=== PATIENT | male | born 1960 | race Caucasian/White ===

== ENCOUNTER → 2021-11-12 09:28 | Outpatient (CLI) | payer OTHER, SELFPAY ==
[2021-11-12 12:49] LABS: COVID19 -Nasal RAPID Negative (Negative)
== END ==
PROVIDERS: Visit Provider Family Medicine Sleep Medicine
DX: Z20.822 Contact with and (suspected) exposure to COVID-19 (principal)
CPT/HCPCS: 87635; C9803

== ENCOUNTER 2021-11-15 09:48 | Day surgery (SDC) | payer OTHER, SELFPAY ==
[2021-10-04 15:39] LABS: COVID19 -Nasal RAPID Negative (Negative)
--- NOTE | 2021-10-05 19:11 | SUR.PREOP ---
Spoke to patient. Notified that surgery for tommorrow has been cancelled and to reach out to 's office to reschedule.
[2021-10-06 14:52] VITALS: BMI 32.8
[2021-11-15] VITALS (14 sets, daily range): BP systolic 107–140; BP diastolic 69–99; PULSE 66–105; RESP 12–19; TEMP 35.9–36.6; O2SAT 93–99; BMI 32.8
--- NOTE | 2021-11-15 06:00 | DI.RAD.S_ITS ---
PROCEDURE: XR SHOULDER RT 1V INDICATIONS: prosthesis placement TECHNIQUE: AP view of the right shoulder were acquired. COMPARISON: [facility], CR, XR SHOULDER 2+ VIEWS RIGHT, 02/24/2021, 11:38. FINDINGS: Bones: A right shoulder arthroplasty is seen in situ. The meaning visualized osseous structures appear maintained. Osteophytosis about the AC joint. Visualized ribs appear intact. Soft tissues: Subcutaneous emphysema, compatible with recent intervention. IMPRESSION: Expected postsurgical change. Dictated by: Gianluca Nielsen M.D. on 11/15/2021 at 15:11 Approved by: Gianluca Nielsen M.D. on 11/15/2021 at 15:13
[2021-11-15] MEDS: PREGABALIN 75 MG CAPSULE PO (10:09)
[2021-11-15] MEDS: CELECOXIB 200 MG CAPSULE PO (10:09)
[2021-11-15] MEDS: ACETAMINOPHEN 325 MG TABLET 975 MG PO (10:09)
[2021-11-15] MEDS: LACTATED RINGERS 1,000 ML 84 ML IV ×2 (10:49→13:57)
--- NOTE | 2021-11-15 11:52 | PM.HP.1 ---
History of Present Illness History of Present Illness Date Patient Seen: 11/15/21 Time Patient Seen: 11:52 Chief complaint: OPB Narrative: The patient is a 61-year-old gentleman who has right shoulder pain that has worsened despite non operative management. He has planned a right total shoulder replacement, this has been delayed due to the governor's mandate on . His history and physical is officially out of date. This is an interim history and physical. The patient reports no changes in his shoulder or general medical health since the prior history and physical in early September. Patient History Medical History Anxiety Dupuytren's contracture of both hands Hx of heartburn Lumbar disc herniation Surgical History History of vasectomy Hx of tonsillectomy S/P epidural steroid injection Family & Social History Social History: household members spouse,children Prior Living Arrangements Mobile home Safety & Behavioral: Feels Safe in Current Yes Environment Been Physically Hurt or No Threatened By a Person Suicidal Ideation Description None Suicide Plan Description No Plan Tobacco & Substance use: Smoking Status Never smoker alcohol intake current alcohol intake frequency 0-2 drinks per day Substance Use Type marijuana Meds Home Medications and Allergies Home Medications Medication Instructions Recorded Confirmed Type ibuprofen 200 mg capsule 400 - 800 mg PO DAILY PRN #0 03/21/17 11/15/21 History Allergies Allergy/AdvReac Type Severity Reaction Status Date / Time hydrocodone AdvReac Severe Nausea, Verified 11/15/21 09:58 vomiting oxycodone AdvReac Severe Hyperactive Verified 11/15/21 09:58 response Review of Systems Review of Systems Narrative: The patient reports he is in his normal state of health. Exam Vital Signs (past 8 hours): - 11/15/21 10:16 Temperature 97.3 F L Pulse Rate 73 Respiratory Rate 18 Blood Pressure 140/99 H Pulse Oximetry 99 Oxygen Delivery Method Room Air Narrative Exam Narrative: Chest is clear to auscultation. Cardiac exam regular rate and rhythm. Abdomen is benign. Right shoulder examination is as previously outlined in his prior history and physical. Assessment & Plan Assessment & Plan narrative: Right shoulder osteoarthritis that has not responded to non operative measures. The patient has agreed to right total shoulder replacement after discussion the risks benefits and alternatives. Risks discussed included but were not limited to: Failure to improve, stiffness, infection, nerve damage, deep venous thrombosis, pulmonary embolism, stroke, myocardial infarction, permanent paralysis, aspiration pneumonia and . COVID-19 COVID-19 status: Negative Result date/Date tested (Pos, Neg/Pending): 11/12/21 Time Spent With Patient Critical Care time: I spent a total of [] minutes of critical care time on this patient's care today; this time is exclusive of procedural time.
--- NOTE | 2021-11-15 12:12 | SUR.PREOP ---
Block start time [1212] . Monitoring initiated and maintained throughout procedure. Oxygen and medications given per anesthesiologist instructions. Patient remained stable throughout procedure, no adverse reactions noted. Block end time [1222].
[2021-11-15] MEDS: CEFAZOLIN 2 GM/20 ML SYRINGE IV (12:30)
[2021-11-15] MEDS: TRANEXAMIC ACID 1,000 MG VIAL 1000 MG INJ ×2 (12:35→13:57)
[2021-11-15] MEDS: THROMBIN (RECOMBINANT) 5,000 UNIT VIAL 5000 UNIT TOP (13:01)
[2021-11-15] MEDS: BUPIVACAINE 0.5% W/ EPI (PF) 30 ML VIAL INJ (13:03)
--- NOTE | 2021-11-15 13:09 | PM.PROC.1 ---
Procedures Date/Time Date of procedure: 11/15/21 Time of procedure: 12:05 General Procedure description: Ultrasound guided interscalene brachial plexus nerve block for post op pain control after RIGHT TOTAL SHOULDER ARTHROPLASTY by Dr. Fine. Risk and benefits of procedure discussed with patient. ASA monitoring applied to patient. O2 given via nasal cannula. 2 mg Versed and 50 mcg fentanyl given for procedural sedation. Skin site was prepped with chlorhexidine and allowed to fully dry. Sterile gloves, mask, hat and probe cover were used to maintain sterility. 2% lidocaine and 30ga needle was used to make a small skin wheal at needle insertion site. Under ultrasound guidance, a 21ga 50mm Pajunk needle was directed into the interscalene groove (middle/anterior scalenes) near the brachial plexus. Patient reported no parasthesias. After negative aspiration, 20 mL 0.5% ropivacaine and 10mg dexamethasone were injected around brachial plexus. Patient tolerated procedure well.
--- NOTE | 2021-11-15 13:31 | SUR.OPER ---
Beach chair with Schlein shoulder positioner. Lower body on padded OR bed. Head in foam padded head cradle, secured with straps. Non-operative arm secured <90 degrees abduction. Pillow under knees. Safety belt at thigh. Cloth tape over blanket over lower legs.
--- NOTE | 2021-11-15 14:33 | PM.OP.1 ---
Operative Date/Time/Diagnoses Date of procedure: 11/15/21 Time of procedure: 14:15 Pre-op diagnosis: Right shoulder osteoarthritis Post-op diagnosis: same Procedure & Clinicians Procedure: Right total shoulder replacement Same procedure as scheduled: Yes Indications: The patient has had progressively worsening right shoulder pain with radiographic changes consistent with arthritis. Non-operative management has failed and the patient has requested total shoulder replacement. The risks, benefits and alternatives to surgery were discussed with the patient prior to proceeding. Risks discussed included, but were not limited to, failure to relieve pain, stiffness, infection, nerve damage, deep venous thrombosis, pulmonary embolism, stroke, coma, heart attack, permanent paralysis and , as well as the potential need for eventual revision of the prosthetic. Surgeon: Kyle Fine Alternative Dispute Resolution Mediator: Simone Madrid Click Yes if Unassisted: No Anesthesia Type: General, Peripheral nerve block and Local Operative Notes Findings: Severe osteoarthritis of the right glenohumeral joint with a large inferior osteophyte on the humeral head and a mild biconcave glenoid deformity. Closure Type: primary Specimen(s): none sent Prosthetic devices, grafts, tissues, transplants, or devices: Implants used in this procedure were manufactured by the [employer] and included a canal sparing size 2 stem with a 50 mm x 20 mm neutral humeral head. There was a 50 mm all polyethylene pegged E +glenoid. In addition an Ar[employer]rex SpeedBridge system was used for closure of the subscapularis. Applied: implant(s) Estimated Blood Loss (mL): 200 Blood products transfused: none Procedure in detail: The patient was seen in the pre-operative area, where the patient identified the right shoulder as the operative site and this was marked with my initials. The patient received pre-operative antibiotics, underwent an interscalene block, and was taken to the operating room and placed on the operative table in the supine position. After satisfactory anesthesia, a full ?time out? was performed. The patient was repositioned in the ?beach chair? position using a dedicated positioner. All pressure points were well padded, and the knees were slightly bent to prevent tension on the sciatic nerves. The right arm was prepared from the fingers to the base of the neck with ChloroPrep in the usual fashion and draped through sterile drapes. An approximately 15 cm incision was created, starting at the clavicle above the coracoid process and extended towards the deltoid insertion. The deltopectoral interval was used to access the shoulder. The cephalic vein was taken medially. A self retaining retractor was placed. The upper centimeter of the pectoralis major tendon was released. The ?three sisters? were identified and cauterized. The axillary nerve was palpated and protected throughout the case. The biceps was released from its groove and tenodesed over the top of the pectoralis major tendon. The subscapularis was released from the lesser tuberosity with a subscapularis peel and tagged for later repair. The shoulder was dislocated and a cutting guide was used for the proximal humeral osteotomy in 30 degrees of retroversion. The proximal humerus was sized and a guide pin placed in the center of the humeral metaphysis. The step Reamer was used followed by the drill for the central portion of the prosthetic body. The size 2 broach was then placed. Proximal humeral protector was then placed. We then removed the self-retaining retractor and placed retractors to access the glenoid. The subscapularis was released with a ?360 degree release? with care being taken to protect the axillary nerve with the inferior portion of this procedure. The remnant of labrum and biceps stump were removed. The appropriate size reamer was chosen with the glenoid sizer, and the guide pin placed. The glenoid was appropriately reamed. The guide for the peripheral holes was used and the center hole enlarged. The trial glenoid was placed with good stability. We then cemented the final implant into place after irrigating the peg holes and drying them with thrombin-soaked Gelfoam. We returned our attention to the humerus, a trial humeral head was applied and a trial reduction performed. Stability was checked with 50% posterior translation with spontaneous reduction, 45? external rotation at the side with the subscapularis held in the repaired position and 70? internal rotation in the ?scarecrow position?. This was felt to be satisfactory and the appropriate implants were opened. The humeral prosthetic was impacted into the humerus. The humeral head was applied when the stem was still slightly proud and impacted to both seat the head and fully seat the stem. The joint was relocated one final time. The joint was irrigated and the subscapularis repaired to the lesser tuberosity using a double row repair with the [employer] Speed Bridge system. The top of the subscapularis was closed to the leading edge of the supraspinatus with a figure of 8 #2 Ethibond to close the rotator interval. A deep drain was placed and brought out supero-laterally. The deltopectoral interval was closed with interrupted 0 Vicryl. The subcutaneous layer was closed with 3-0 Vicryl, and the skin with a running 3-0 V-Lock suture and Dermabond. An Aquacel Ag dressing was applied, the patient?s arm was placed in a sling, and the patient was taken to recovery having tolerated the procedure well. Complications: none Post-operative Condition: stable Disposition: PACU Plan for aftercare: The patient will be maintained on a standard total shoulder replacement protocol with passive range of motion limited to 90 degrees forward flexion, 0 degrees external rotation at the side, 0 degrees abduction and internal rotation to the body. The patient will receive aspirin and sequential compression devices for DVT prophylaxis. The patient will be discharged home when safe for the home environment, likely tomorrow.
[2021-11-15] MEDS: TRAMADOL 50 MG TABLET 100 MG PO (16:38)
[2021-11-15] MEDS: ACETAMINOPHEN 325 MG TABLET 650 MG PO (16:38)
[2021-11-15] MEDS: LACTATED RINGERS 1,000 ML 100 ML IV (16:39)
[2021-11-15] MEDS: IBUPROFEN 400 MG TABLET PO (17:34)
[2021-11-16] MEDS: TRAMADOL 50 MG TABLET PO (05:12)
[2021-11-16 05:53] LABS: Hematocrit 42.3 % (41-53); Hemoglobin 13.9 g/dL (13.5-17.5)
--- NOTE | 2021-11-16 07:40 | PM.DS.1 ---
History of Present Illness History of Present Illness Date Patient Seen: 11/16/21 Time Patient Seen: 07:40 Chief complaint: OPB Narrative: The patient is a 61-year-old gentleman who has right shoulder pain that has worsened despite non operative management. He has planned a right total shoulder replacement, this has been delayed due to the governor's mandate on . His history and physical is officially out of date. This is an interim history and physical. The patient reports no changes in his shoulder or general medical health since the prior history and physical in early September. Discharge Providers Provider Date of admission: November 15, 2021 Discharge Date: 11/16/21 Consults: 11/15/21 15:15 Consult to Discharge Planning Routine Comment: Consult to Physical Therapy Evaluate & Treat Comment: Physician Instructions: Pendulums, PROM 90 FF, 0 ER, 0 Ab, IR to body Discharge provider: Kyle Fine MD Summary Hospital Course Discharge Diagnosis: 1. Right shoulder osteoarthritis Hospital Course: The patient was admitted to the hospital and taken directly to the operating room on November 15, 2021 where he underwent a right total shoulder replacement without complications. He had borderline pain control overnight but had refused to take his Tylenol and ibuprofen, only using tramadol. He was otherwise medically stable and neurologically intact on examination. Status at Discharge Cognitive/behavioral status at discharge: at baseline, oriented Functional status at discharge: independent ambulation Overall status at discharge: patient is progressing back to baseline Time Spent with Patient Time spent: Less than 30 minutes Exam Vital Signs (past 8 hours): Oxygen Delivery Method Nasal Cannula Oxygen Flow Rate 0 Narrative Exam Narrative: Right upper extremity wound is dressed with no drainage on the bandage. Light touch is intact in the radial, ulnar, median, muscular cutaneous and axillary nerve distributions. He can extend his thumb, abduct his thumb, abduct his fingers and can fire his biceps and deltoid. Objective Labs Result Diagrams: 11/16/21 04:54 Labs: Laboratory Results - last 24 hr 11/16/21 04:54 Hgb 13.9 Hct 42.3 PFSH Medical History Anxiety Dupuytren's contracture of both hands Hx of heartburn Lumbar disc herniation Surgical History History of vasectomy Hx of tonsillectomy S/P epidural steroid injection Social History household members: spouse and children Smoking Status: Never smoker alcohol intake: current Discharge Assessment & Plan Assessment and Plan Assessment: Stable and neurologically intact 1 day postoperative from right total shoulder replacement. His pain control has been marginal but he has not been using the multi modal pain control plan as directed. He is otherwise medically stable. Plan of Treatment: We talked about the appropriate use of multiple medications for pain relief after major joint surgery. He will be discharged today. He will follow up in my office in 10-14 days. He has been given a prescription for tramadol and Vistaril. He has been instructed in the use of Tylenol and ibuprofen for additional pain control and the use of low-dose aspirin for DVT prophylaxis. Discharge Plan Discharge Plan Patient Disposition: Home Discharge orders & Medications Discharge Orders: Discharge (Order); Ordered 11/16/21 Ordered By: Kyle Fine Prescriptions: New acetaminophen 325 mg Tablet 650 mg PO TID 30 Days Qty: 180 0RF aspirin 81 mg Tablet,Delayed Release (Dr/Ec) 81 mg PO BID 42 Days Qty: 84 0RF hydroxyzine pamoate 25 mg Capsule 25 mg PO Q6HR PRN (Reason: Nausea) Qty: 30 0RF ibuprofen 400 mg Tablet 400 mg PO Q4HR 30 Days 0RF tramadol 50 mg Tablet 50 mg PO QID PRN (Reason: Pain, Moderate (4-6)) Qty: 40 0RF Discontinued ibuprofen 200 MG capsule 400 - 800 mg PO DAILY PRN (Reason: Pain) Qty: 0 0RF Follow up/Referrals: Kyle Fine MD [Physician] - 2 Weeks Diet/Activity/Treatments Diet: Diet as Tolerated and Regular Activity: You may use your right hand in front of your body below shoulder level to lift 1-2 lb. Cold/Heat Therapy: You may apply ice to the right shoulder for 15 minutes every hour as needed for pain control. Skin/Wound/Dressing Care Report to your healthcare provider any signs of infection, such as:: chills, fever, night sweats, increased pain, unusual drainage and unusual redness Dressing: Leave the dressing intact until your postoperative follow-up. You may shower with the dressing in place. If the central strip of the dressing becomes saturated with either water or blood, please call the office to have it evaluated. Visit Report/Discharge Packet Instructions: DI for Shoulder Replacement Stand Alone Forms: Surgery Discharge Discharge Data Attending Provider: Kyle Fine VTE Deep Vein Thrombosis/Pulmonary Embolism Present on Admission: No
[2021-11-16 08:20] VITALS: BP 108/74; PULSE 72; RESP 18; TEMP 36.7; O2SAT 95
[2021-11-16] MEDS: IBUPROFEN 400 MG TABLET PO (09:23)
[2021-11-16] MEDS: ASPIRIN EC 81 MG TABLET PO (09:23)
--- NOTE | 2021-11-16 09:45 | PT.IIE ---
Current Diagnoses Primary osteoarthritis, right shoulder (11/15/21) Surgery Performed Operation Date: 11/15/21 12:15 Actual Procedures p Total Shoulder Arthroplasty(Right) - Kyle Fine MD Medical History (Last Reviewed 11/15/21 @ 11:53 by Kyle Fine MD) Anxiety Dupuytren's contracture of both hands Hx of heartburn Lumbar disc herniation Physical Therapy Inpatient Evaluation/Re-Eval M1 PT/OT-IP Prior Functional Status Start: 11/16/21 12:52 Freq: NEEDED Status: Active Protocol: Document 11/16/21 09:45 AB (Rec: 11/16/21 13:03 AB [id number]) Medical Review Prior Functional Status Medical History Reviewed Yes Communication able to make needs known Mobility and Gait pt stated that he is independent with all mobilities and ambulation without AD Social History Household Members spouse,children Living Arrangements Mobile home Number of Floors (Floors) One Floor Number of Stairs To Enter/Railing? 3 steps B rails to enter Home Environment High Toilet,Walk in Shower Employment Status Retired M2 PT-IP Current Condition Start: 11/16/21 12:52 Freq: NEEDED Status: Active Protocol: Document 11/16/21 09:45 AB (Rec: 11/16/21 13:03 AB [email or web address]) Physical Therapy Current Condition Current Condition Evaluation Date 11/16/21 Treatment Diagnosis s/p R TSA; difficulty in walking Onset Date 11/15/21 M3 PT-IP Subjective Start: 11/16/21 12:52 Freq: NEEDED Status: Active Protocol: Document 11/16/21 09:45 AB (Rec: 11/16/21 13:03 AB [email or web address]) Subjective Physical Therapy Visit Type Type Initial Evaluation Visit Start Time 09:45 Visit Stop Time 10:30 Total Visit Minutes 45 Number of REFRIGERATOR ASSEMBLER Visits 0 Physical Therapy Visit Comments Patient Comments pt is agreeable to do PT Therapy Pain Assessment Pain When Pain Assessed At Rest Pain Present Pain Present Pain Reported Location Right Shoulder Intensity 4 Scale Used Numeric (0 - 10) Pain Management Techniques Distraction,Modification of Treatment,Re-positioning, Timing of Activity with Medications M4 PT-IP Mobility and Gait Start: 11/16/21 12:52 Freq: NEEDED Status: Active Protocol: Document 11/16/21 09:45 AB (Rec: 11/16/21 13:03 AB [email or web address]) PT-Bed Mobility Assessment Supine to Sit Supine to Sit Standby Assistance Sit to Supine Sit to Supine Standby Assistance Scooting Scooting to Edge of Bed Standby Assistance PT-Transfer Assessment Sit to and From Stand Sit to and from Stand Standby Assistance Equipment Transfer Assistive Device None,Gait Belt Orthotic/Prosthetic Devices or Brace: Yes Comments Mobility Comments pt agreed to do PT. spouse in room. educated pt and spouse regarding TSA precautions, elbow/wrist/hand exercises and pendulum exercises. pt completed supine to sit SBA. sat on EOB SBA. assisted with sling management. completed elbow/wrist/hand exercises. attempted pendulum but only was able to assume position and dangle RUE to side but due to increase muscle guarding and unable to relax RUE, pt was not able to complete pendulum exercise. educated on UB dressing techniques. educated spouse on how to manage sling. spouse was able to put sling on pt. pt completed sit to stand from EOB SBA and ambulated ~ 250 ft without AD SBA. completed up/down steps using L rail SBA . ambulated back to his room. sat on EOB. Pt and spouse without any other concerns and stated that he is ready to go home. informed nurse. Gait Assessment Gait Gait Assistance Required: Standby Assistance Distance (Feet) 250 Able to Maintain Weight Bearing Status Yes During Gait Assistive Devices Assistive Device None,Gait Belt Orthotic/Prosthetic Devices or Brace: Yes Factors Limiting Gait Function Factors Limiting Gait Function Decreased Strength,Limited Range of Motion,Pain Stair Climbing Assessment Evaluation Level of Assist On Stairs Standby Assistance Devices Stair Climbing Assistive Devices Left Railing Technique/Endurance Stair Climbing Direction Ascend and Descend Stair Climbing Technique Step Over Step Number of Steps Climbed 3 Query Text: Stair Climbing Set # Repetitions (reps) 1 PT-Balance Assessment Sitting Balance and Reactions Static Sitting Balance Ability Normal Dynamic Sitting Balance Ability Normal Standing Balance and Reactions Static Standing Balance Ability Good Dynamic Standing Balance Ability Good Device Used without AD M5 PT-IP Objective Assessments Start: 11/16/21 12:52 Freq: NEEDED Status: Active Protocol: Document 11/16/21 09:45 AB (Rec: 11/16/21 13:03 [email or web address]) Orientation Orientation/Cognition Level of Alertness Alert Orientation Name,Age,Birthday,Month,Date, Year,Day of Week,Place, Situation Language Function Ability No Deficits Noted Safety Awareness Understands Safety Issues Memory Description No Deficits Noted Gross Range of Motion Lower Extremity ROM Assessment Within Functional Limits Strength Lower Extremity Strength Assessment Within Functional Limits Coordination Assessment Gross Coordination Gross Coordination WNL Sensation Assessment Sensation Gross Sensation WNL Muscle Tone Muscle Tone WNL Yes M6 PT-IP Treatment Start: 11/16/21 12:52 Freq: NEEDED Status: Active Protocol: Document 11/16/21 09:45 AB (Rec: 11/16/21 13:03 AB [email or web address]) Physical Therapy Treatment Exercises Exercises Shoulder Pendulums,Shoulder Flexion,Elbow Flexion/ Extension,Wrist ROM,Hand ROM Education Education Provided Precautions,Weight Bearing Status,Post-Op Packet,Safety Brace Education [place],Caregiver M7 PT-IP Assessment and Plan Start: 11/16/21 12:52 Freq: NEEDED Status: Active Protocol: Document 11/16/21 09:45 AB (Rec: 11/16/21 13:03 AB [email or web address]) PT Summary Assessment and Plan Potential Rehabilitation Potential Good Status of Condition at Evaluation Stable Summary Impairments Pain,ROM,Strength,Balance, Coordination,Sensation,Tone, Cognition,Bed Mobility, Transfers,Gait,Activity Tolerance Assessment Summary pt requiring SBA with mobility . caregiver training conducted for sling management and assisting pt with UB dressing. pt may go home when medically stable. Goals Bed Mobility Goal Independent Transfer Goal Independent Gait Goal Independent Gait Distance 300 Other Goals up/down 3 steps L rail mod I Days to Meet Goals 3 Frequency of Treatment Frequency Of Treatment Twice a Day Treatment Plan Physical Therapy Treatment Plan Bed Mobility Training,Transfer Training,Gait Training, Therapeutic Exercise,Balance Retraining,Post Op Education, Discharge Planning,Hot or Cold Pack,Neuromuscular Re-ed, Coordination Retraining,Manual Therapy Precautions Shoulder Precautions Sling,PROM,Internal Rotation to Body,No External Rotation, No Abduction,Forward Flexion to 90 degrees,Pendulums Weight Bearing Status Weight Bearing Status Non-Weight Bearing Allowed Weight Bearing Amount (enter % RUE NWB or #) (%) Recommendations To Nursing Amount of Assist Needed Standby Assistance Discharge Recommendations PT Discharge Recommendations Home with Assistance, Outpatient PT Transportation Needs at Discharge Private Vehicle
--- NOTE | 2021-11-16 13:23 | PC.NURSE ---
Discharge: Pt feels ready to d/c to home. Seen by MD and given d/c instructions. Seen by PT and sling was fitted better, received their d/c instructions. Vds w/out diff. He doesn't want to take certain medications and Dr. Fine was made aware and he did speak with patient. Patient understands the importance of taking his aspirin as directed by the doctor. Tolerates diet w/out problems and pain is in control. Aquacel is dry and he received wound care instructions by MD. Feels ready to d/c to home. Spouse present at time of teaching. Reviewed d/c packet and questions answered. Rx was esent and pt shown this. Pt d/c home via auto w/ spouse.
== END 2021-11-16 11:00 | disposition home or self-care (01) ==
LOC: OR 09:50 → AC 09:51
PROVIDERS: Referring Provider Orthopaedic Surgery; Visit Provider Orthopaedic Surgery
PROC: 0RQJ0ZZ Repair Right Shoulder Joint, Open Approach (ICD-10-PCS; CPT 23472; principal; 2021-11-15 12:15)
DX: M19.011 Primary osteoarthritis, right shoulder (principal); Z20.822 Contact with and (suspected) exposure to COVID-19
CPT/HCPCS: 23472; 36415; 64450; 73020; 85014; 85018; 97161; 97530; C1776; J0690; J1100; J2250; J2405; J2704; J3010